=== PATIENT | male | born 1970 | race Caucasian/White ===

== ENCOUNTER 2022-04-19 12:06 | Outpatient (CLI) | payer OTHER, SELFPAY ==
[2022-04-19 13:52] LABS: Chloride* 103 mmol/L (96-114); Potassium* 4.6 mmol/L (3.6-5.1); Sodium* 137 mmol/L (135-149)
[2022-04-19 13:55] LABS: Blood Urea Nitrogen* 20 mg/dL (7-30); Carbon Dioxide* 25 mmol/L (20-32); Creatinine* 0.9 mg/dL (0.5-1.5); Estimated Glomerular Filt Rate 103 ml/min; Glucose* 221 mg/dL (60-115)
[2022-04-19 13:56] LABS: Calcium* 9.2 mg/dL (8.4-10.6)
[2022-04-19 14:16] LABS: PSA Screen* 0.31 ng/mL (0.10-4.00)
== END 2022-04-19 12:07 | disposition home or self-care (01) ==
PROVIDERS: PCP Family Medicine; Visit Provider Family Medicine
DX: I10 Essential (primary) hypertension (principal); Z12.5 Encounter for screening for malignant neoplasm of prostate; E11.9 Type 2 diabetes mellitus without complications
CPT/HCPCS: 80048; 84153

== ENCOUNTER 2022-09-01 09:37 | Outpatient (CLI) | payer OTHER, SELFPAY ==
[2022-09-01 13:11] LABS: Basophils Absolute Auto 0.04 K/uL (0.00-0.30); Basophils Percent Auto 0.6 % (0.0-3.0); Eosinophils Absolute Auto 0.18 K/uL (0.00-0.50); Eosinophils Percent Auto 2.6 % (0.0-7.0); Hematocrit 46.5 % (37.0-53.0); Hemoglobin* 15.3 gm/dL (13.5-17.5); Immature Granulocytes Abs Auto 0.04 K/uL (0.00-0.30); Immature Granulocytes Pct Auto 0.6 %; Lymphocytes Absolute Auto 1.65 K/uL (0.90-2.90); Lymphocytes Percent Auto 24.2 % (20-44); Mean Corpuscular HGB Conc 33 gm/dL (32-36); Mean Corpuscular Hemoglobin 26 pg (26-34); Mean Corpuscular Volume 80 fL (80-100); Monocytes Percent Auto 10.5 % (0.0-11.0); Neutrophils Percent Auto 61.5 % (42.0-72.0); Platelet Count* 164 K/uL (140-440); Red Blood Count 5.85 m/uL (4.30-5.90); White Blood Count* 6.83 K/uL (4.50-11.00)
[2022-09-01 13:13] LABS: Slide Review Reflex No
[2022-09-01 13:16] LABS: Uric Acid* 4.4 mg/dL (2.2-8.4)
[2022-09-01 13:19] LABS: C Reactive Protein* 0.6 mg/dL (0.5-1.0)
== END 2022-09-01 09:38 | disposition home or self-care (01) ==
PROVIDERS: PCP Family Medicine; Visit Provider Family Medicine
DX: D50.9 Iron deficiency anemia, unspecified (principal); M25.50 Pain in unspecified joint
CPT/HCPCS: 84550; 85025; 86140; 86618

== ENCOUNTER 2024-09-23 14:18 | Outpatient (CLI) | payer BC, SELFPAY | END 2024-09-23 14:19 | disposition home or self-care (01) | PROVIDERS: PCP Family Medicine; Visit Provider Family Medicine | DX: E78.5 Hyperlipidemia, unspecified (principal) | CPT/HCPCS: 80061; 84460 ==

== ENCOUNTER 2025-01-13 16:23 | Outpatient (CLI) | payer BC, SELFPAY | END 2025-01-13 16:24 | disposition home or self-care (01) | LOC: FBOREF 16:24 | PROVIDERS: PCP Family Medicine; Visit Provider Family Medicine | DX: I10 Essential (primary) hypertension (principal); Z12.5 Encounter for screening for malignant neoplasm of prostate | CPT/HCPCS: 80048; G0103 ==

== ENCOUNTER 2025-07-22 16:50 | Outpatient (CLI) | payer BC, SELFPAY | END 2025-07-22 16:51 | disposition home or self-care (01) | LOC: NFLDREF 07-29 11:39 | PROVIDERS: PCP Family Medicine; Referring Provider Family Medicine; Visit Provider Family Medicine | DX: E11.9 Type 2 diabetes mellitus without complications (principal); Z79.4 Long term (current) use of insulin | CPT/HCPCS: 82043; 82570 ==